=== PATIENT | male | born 1985 | race Hispanic/Latino ===

== ENCOUNTER 2021-10-17 07:45 | Day surgery (SDC) | payer OTHER ==
[2021-10-11 14:24] LABS: BASOPHILS % (AUTO) 0.3 % (0.0-5.0); EOSINOPHILS % (AUTO) 2.6 % (0.0-8.0); HEMATOCRIT 43.7 % (42-54); LYMPHOCYTES % (AUTO) 30.9 % (21.0-51.0); MEAN CORPUSCULAR HEMOGLOBIN 28.9 pg (27.0-33.0); MEAN CORPUSCULAR HGB CONC 34.1 g/dL (32.0-36.0); MEAN CORPUSCULAR VOLUME 84.9 fL (79-99); MONOCYTES % (AUTO) 12.6 % (3.0-13.0); NEUTROPHILS % (AUTO) 53.4 % (40.0-77.0); PLATELET COUNT (AUTO) 193 K/uL (130-400); RED BLOOD CELL COUNT(AUTO) 5.15 MIL/uL (4.50-6.20); RED CELL DISTRIBUTION WIDTH 12.6 % (11.0-15.5); WHITE BLOOD COUNT (AUTO) 5.8 K/uL (4.8-10.8)
[2021-10-11 14:48] LABS: CREATININE 0.9 mg/dL (0.5-1.5); POTASSIUM 3.8 mmol/L (3.5-5.1)
[2021-10-16 09:21] VITALS: BP 136/79
[2021-10-17] VITALS (18 sets, daily range): BP systolic 99–128; BP diastolic 49–81
[~2021-10-17] VITALS: Ht 177.8 cm; Wt 93.3 kg
[~2021-10-17 07:45] MED LIST: CEFAZOLIN SODIUM 1 GM VIAL IVP SCH; CEFAZOLIN SODIUM 2 GM VIAL IV ONE; LACTATED RINGERS 1000ML 1,000 ML IV SCH
[2021-10-17] MEDS ORDERED: LIDOCAINE PF 100MG/5ML (2%) SYRINGE 5ML ONE (10:18)
[2021-10-17] MEDS ORDERED: MIDAZOLAM HCL 1 MG/ML 2ML VIAL ONE ×2 (10:19→11:07)
[2021-10-17] MEDS ORDERED: ROCURONIUM 10MG/1ML SYR 10 MG/ML ML ONE (10:19)
[2021-10-17] MEDS ORDERED: FENTANYL CITRATE PF 50 MCG/1 ML 2ML VIAL ONE (10:19)
[2021-10-17] MEDS ORDERED: PROPOFOL 10 MG/ML 20ML VIAL IV ONE (10:19)
[2021-10-17] MEDS ORDERED: KETAMINE 50MG/ML SYRINGE 50 MG/ML DISP.SYRIN IV ONE (10:22)
[2021-10-17] MEDS ORDERED: ROPIVACAINE 0.5% 5MG/ML 30ML IJ ONE (10:30)
[2021-10-17] MEDS ORDERED: DEXAMETHASONE SOD PHOSPHATE 10MG/ML 1ML VIAL ONE (11:39)
[2021-10-17] MEDS ORDERED: ONDANSETRON 4MG INJ ONE ×3 (11:39→15:36)
[2021-10-17] MEDS ORDERED: CEFAZOLIN SODIUM 2 GM VIAL IV ONE (11:40)
[2021-10-17] MEDS ORDERED: GLYCOPYRROLATE 1 MG/5 ML SYRINGE ONE (12:37)
[2021-10-17] MEDS ORDERED: NEOSTIGMINE 5MG/5ML SYR IV ONE (12:38)
== END 2021-10-17 15:28 | disposition home or self-care (01) ==
LOC: DAH 07:45
PROVIDERS: ATTEND Orthopaedic Surgery
DX: M75.51 Bursitis of right shoulder (principal); M25.511 Pain in right shoulder; M25.711 Osteophyte, right shoulder; G89.18 Other acute postprocedural pain; E66.9 Obesity, unspecified; Z79.899 Other long term (current) drug therapy; Z98.890 Other specified postprocedural states; Z68.29 Body mass index [BMI] 29.0-29.9, adult
CPT/HCPCS: 80048; 85025; 36415; 29837; 64415; 76942; A4663; A6207; J7120 ×2; A4565; J0690 ×2; J3010; J3490 ×2; J1100; J2710; J2001; J2250 ×2; J2704; J2405 ×3; J2795; A4649 ×4; A4215; A4223; A4222; A4221; A4600